=== PATIENT | female | born 1985 | race Hispanic/Latino ===

== ENCOUNTER 2019-12-30 12:59 | Observation (INO) | payer OTHER, SELFPAY ==
[2019-12-30 13:45] VITALS: BP 106/61; PULSE 83
[2019-12-30 14:00] VITALS: BP 115/66; PULSE 89
[2019-12-30 14:15] VITALS: BP 113/59; PULSE 83
[2019-12-30 14:31] LABS: Add Urine Microscopic? NO; Appearance Urine Clear (Clear); Bilirubin Urine Negative (Negative); Blood Urine Negative (Negative); Color Urine Yellow (Yellow); Glucose Urine UA Negative (Negative); Ketones Urine Negative (Negative); Leukocyte Esterase Ur Negative LEU/UL (NEGATIVE); Nitrate Urine Negative (Negative); Protein Urine Negative (Negative); Specific Grav Ur 1.013 (1.001-1.035); Urobilinogen Urine Negative mg/dL (<2.0)
[2019-12-30 15:39] VITALS: BMI 39.3
--- NOTE | 2019-12-30 15:39 | OBADM ---
This patient, Aida Landry, admitted to the OB room [facility] Post 111 for observation. Patient/family oriented to hospital policies and general routines including ID bracelet, bed and alarms, visiting hours, pain management, procedures, bathroom and other care routines, personal items, smoking policy, room service/diet, and visiting hours. Patient/Family are encouraged to report perceived risks to care and to ask questions if they do not understand what they are told or what they should do.
--- NOTE | 2020-01-11 19:57 | PM.OBDSVD ---
DS: Admitting Diagnosis Admitting Diagnosis Admitting Diagnosis: Dorsalgia, unspecified contractions DS: Discharge Diagnosis Discharge Diagnosis (1) False labor: Code(s): O47.9 - False labor, unspecified Status: Acute OB - DS: Summary OB Procedures : None OB Procedures Intrapartum: Other OB Procedures: : None Time Spent with Patient Time attestation: Total time spent providing and/or coordinating discharge services:10 Exam Const: General: comfortable and no acute distress Limitations: no limitations Chest: Breast/axilla inspection: normal inspection of the breasts Resp: Effort & Inspection: normal respiratory effort Cardio: Rate: regular rate GI: GI Palp: Yes Soft to palpation Percussion: Yes normal to percussion : General: Yes no CVA tenderness Manual OB Exam: Not dilated nor effaced Psych: Appearance: grossly normal Mental Status: mental status grossly normal Affect: normal affect Attitude: cooperative Thought content: Yes Normal thought content present Judgement: Good judgement present (Psych) Discharge Plan Discharge Attending physician on discharge: Hardik Bautista Discharging Clinician: Hardik Bautista Anticipated Discharge Date/Time: 12/30/19 22:44 Patient Disposition: Home, Self-Care Activity: unlimited and as tolerated Diet: as tolerated Wound Care Instructions: follow printed instructions Discharge Instructions: OB ANTEPARTUM DISCHARGE INSTRUCTIONS This information is given to help you properly care for yourself at home after your discharge from the hospital. Follow these instructions until your doctor tells you otherwise. DIET: Eat Three Well Balanced Meals per Day Additional Diet Instructions: ACTIVITY: As Tolerated Additional Activity Instructions: RETURN TO LABOR AND DELIVERY IF YOU HAVE: Any Change In Baby's Normal Movement Pattern Any Leakage of Fluid More than 6 Contractions in an Hour Vaginal Bleeding Additional Reasons to Return to Labor and Delivery: Contractions may feel like abdominal pain, tightening, cramping, pressure, back ache, or thigh ache. 24 Hour Urine Collection: Continue 24 hour urine collection until at . When collection is completed, return specimen to the [facility]. See handout for 24 hour urine collection. OTHER INSTRUCTIONS: FOLLOW-UP CARE: Keep Next Scheduled Appointment To see in/on Valuables released to patient or family? N/A Medications from home returned to patient? N/A I Acknowledge Receipt of and Understand the Above Instructions IF YOU HAVE ANY QUESTIONS REGARDING THESE INSTRUCTIONS, PLEASE CALL [phone]. IF PROBLEMS ARISE, CALL YOUR PROVIDER. IF EMERGENCY CARE IS NEEDED, [facility]S EMERGENCY ROOM IS AVAILABLE 24 HOURS A DAY. Stand Alone Forms: General Discharge Information Follow-up/Referrals: Hardik Bautista MD [Physician] - Discharge Medications: Continued multivitamin [Tab-A-Alannah] Tablet RF: 0 aspirin 81 mg tablet,delayed release (DR/EC) 81 mg PO BID RF: 0 acyclovir 800 mg tablet 800 mg PO DAILY RF: 0 progesterone micronized 200 mg capsule 200 mg PO BID RF: 0 folic acid 1 mg tablet 2 mg PO BID RF: 0 levothyroxine 200 mcg tablet 200 mcg PO QAM RF: 0 Classic 28 mg iron- 800 mcg tablet 1 tablet PO DAILY RF: 0 Date of admission: 12/30/19 12:59 Primary Care Provider: UNKNOWN,DOCTOR Admitting Provider: Hardik Bautista Discharge Date/Time: 12/30/19 14:58 Attending physician on admission: Hardik Bautista Condition: Stable
== END 2019-12-30 14:58 | disposition home or self-care (01) ==
PROVIDERS: Admitting Provider Obstetrics & Gynecology; Visit Provider Obstetrics & Gynecology
DX: O60.03 Preterm labor without delivery, third trimester (principal); Z3A.28 28 weeks gestation of pregnancy
CPT/HCPCS: 81003; 87086; 87088; G0378; G0379

== ENCOUNTER 2020-03-03 11:39 | Observation (INO) | payer OTHER, SELFPAY ==
[2020-03-03 11:42] VITALS: BMI 39.2
[2020-03-03 12:31] VITALS: BP 111/67; PULSE 79
--- NOTE | 2020-03-03 12:42 | OBADM ---
This patient, Aida Landry, admitted to the OB room Labor/Delivery/Recovery 104 for observation. Patient oriented to hospital policies and general routines including ID bracelet, bed and alarms, visiting hours, pain management, procedures, bathroom and other care routines, personal items,and call light. Patient is encouraged to report perceived risks to care and to ask questions if she does not understand what she is told or what she should do. Pt declines the need for an historic interpreter.
--- NOTE | 2020-03-09 05:35 | PM.OBTRLD ---
OB - Triage/Final Diagnosis Visit Information Reason for evaluation: threatened labor Evaluation Variability: Moderate (11-25) monitor accelerations: Present monitor decelerations: None Cervical dilation (cm): 0 Cervical effacement (%): 0 station: -4 Final Diagnosis (1) False labor: Code(s): O47.9 - False labor, unspecified Status: Acute
== END 2020-03-03 13:05 | disposition home or self-care (01) ==
PROVIDERS: Admitting Provider Obstetrics & Gynecology; Visit Provider Obstetrics & Gynecology
DX: O47.9 False labor, unspecified (principal); Z3A.00 Weeks of gestation of pregnancy not specified
CPT/HCPCS: G0378; G0379

== ENCOUNTER 2020-03-16 15:13 | Outpatient (RCR) | payer OTHER, SELFPAY ==
--- NOTE | ~2020-03-16 | US_ITS ---
EXAMINATION: US OB follow up w [facility] DATE: 03/16/2020 17:06 INDICATION: Encounter for routine care during third trimester TECHNIQUE: Real-time pelvic ultrasound was performed. The interpreting radiologist was not present fo r the study. COMPARISON: None. FINDINGS: There is a single living fetus in vertex presentation. The placenta is fundal. heart rate is 16 3 beats per minute (bpm). The amniotic fluid index is 10.1 cm which is normal. Biophysical profile performed by the technologist: breathing (30 sec sustained breathing in 30 minutes): 2 out of 2 movement (3 gross body movements in 30 minutes): 2 out of 2 tone (one episode of pafqrpm-qvukjvgwb-vtavpbd limb movement): 2 out of 2 Amniotic fluid pocket (2 cm): 2 out of 2 Total score: 8 out of 8 The following biometric data were obtained: Biparietal diameter (BPD): 9.2 cm; head circumference (HC): 34.6 cm; abdominal circumference (AC): 34 .0 cm; femur length (FL): 7.3 cm. These measurements are concordant. Estimated weight is 3388 g +/- 508 g, which correlates with the 46th percentile when 03/23/2020 is used as estimated date of delivery. As single measurements, these parameters are each equal to the following estimated gestational ages w ith ranges of +/- 2 standard deviations: BPD: 37 weeks 3 days +/- 3 weeks 1 days. HC: 40 weeks 1 days +/- 2 weeks 5 days. AC: 38 weeks 0 days +/- 3 weeks 0 days. FL: 37 weeks 5 days +/- 3 weeks 1 days. estimated gestational age based solely on measurements from this exam is 38 weeks 2 days +/- 2 weeks 5 days. IMPRESSION: 1. Single living fetus in vertex presentation. 2. Biophysical profile 8 out of 8. 3. Estimated weight is 3388 g +/- 508 g, which correlates with the 46th percentile when 020 is used as estimated date of delivery. Reviewed, dictated and finalized at location A. IMPRESSION: 1. Single living fetus in vertex presentation. 2. Biophysical profile 8 out of 8. 3. Estimated weight is 3388 g +/- 508 g, which correlates with the 46th p ercentile when 03/23/2020 is used as estimated date of delivery.
[2020-03-16 17:24] VITALS: BP 124/68; PULSE 81
== END 2020-03-23 08:04 | disposition home or self-care (01) ==
LOC: ANHOBOP 15:13
PROVIDERS: Visit Provider Obstetrics & Gynecology
DX: Z34.93 Encounter for supervision of normal pregnancy, unspecified, third trimester (principal); Z3A.38 38 weeks gestation of pregnancy
CPT/HCPCS: 59025; 76816; 76819

== ENCOUNTER 2020-03-20 04:04 | Inpatient (IN) | payer OTHER, SELFPAY ==
--- NOTE | 2020-03-19 19:36 | PM.IMHP ---
H&P: HPI History of Present Illness Date/Time: 03/20/20 06:36 Chief complaint: Induction of labor Narrative: Aida Landry is a 34 y/o H F with presents for IOL at 39w4d. c/b MTHFR, obesity, prediabetes, and hypothyroidism,HSV and PIH the patient understands her condition procedure and risk and agrees to proceed. We will be using Pitocin per protocol. Review of Systems Review of Systems: All systems reviewed & are unremarkable except as noted in HPI and below Constitutional: Constitutional: Reports no additional constitutional complaints Eyes: Eyes: Reports no additional eye complaints ENT: Reports system reviewed and no additional complaints, except as documented Cardiovascular: Cardiovascular: Reports no additional cardiovascular complaints Respiratory: Respiratory: Reports no additional respiratory complaints Gastrointestinal: Gastrointestinal: Reports no additional gastrointestinal complaints Genitourinary: Genitourinary: Reports no additional female genitourinary complaints Musculoskeletal: Musculoskeletal: Reports no additional musculoskeletal complaints Integumentary/Breasts: Skin/Breast: Reports system reviewed and no additional complaints, except as docu Neurologic: Reports system reviewed and no additional complaints, except as documented Psychiatric: Psychiatric: Reports no additional psychiatric complaints Endocrine: Endocrine: Reports no additional endocrine complaints Allergic/Immunologic: Allergic/Immunologic: Reports no additional allergic/immunologic complaints [facility] Past Medical History Medical History (Updated 03/19/20 @ 20:05 by Hardik Bautista MD) Compound heterozygous MTHFR mutation 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 M, 7lbs 5oz, Vaginal Vaginal delivery 04-18-2007, 40 wks 1. M, 7lbs 5oz, Vaginal Vaginal delivery 02-07-2005, 40 wks 1. 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 Gender identity (if verbalized by the patient): Female Sexual Orientation (if Verbalized by the Patient): Straight or Heterosexual Spiritual care concerns: No Agree to blood products: Yes Meds Home Medications and Allergies Home Medications Medication Instructions Recorded Confirmed Type Classic 1 tablet PO DAILY 01/06/20 03/16/20 History acyclovir 800 mg PO DAILY 01/06/20 03/16/20 History folic acid 2 mg PO BID 01/06/20 03/16/20 History levothyroxine 200 mcg PO QAM 01/06/20 03/16/20 History Allergies Allergy/AdvReac Type Severity Reaction Status Date / Time metronidazole Allergy Swelling Verified 03/16/20 12:11 Exam Const: General: cooperative, healthy appearing, comfortable, no acute distress, well developed, alert, awake and Physically active Nutritional Appearance: obese Orientation/consciousness: patient oriented x3 Limitations: no limitations HENMT: Head: normal to inspection and normocephalic Ears: hearing grossly normal bilaterally and external ears normal General nose exam: Normal external nose present Face and sinus: normal facial exam Mouth: Yes Normal oral and palatal mucosa present Teeth
--- NOTE | 2020-03-19 20:26 | WPDHPUPDATE1 ---
History and Physical Update Update Date/Time: 03/20/20 20:26 History and Physical has been reviewed, including an updated exam of the patient. There are NO changes in the patient's condition. Risks, benefits, and alternatives have been discussed and questions answered. Patient agrees to proceed with procedure. 34 y/o H F with presents for IOL at 39w4d. c/b MTHFR, obesity, prediabetes, and hypothyroidism, and HSV. . She endorses movement. Denies LOF, bleeding. + movements
--- NOTE | 2020-03-19 20:30 | WPDOBADMIT ---
Obstetrics - Admit Note Admission Note: record reviewed. No pertinent additions to the history and/or any subsequent changes in the physical findings that are not consistent with the expected course of the were found. Additions to the history and/or subsequent changes in the physical findings follow. None. 34 y/o H F with presents for IOL at 39w4d. c/b MTHFR, obesity, prediabetes, and hypothyroidism, and HSV. . She endorses movement. Denies LOF, bleeding. + movements
[2020-03-20] VITALS (109 sets, daily range): BP systolic 63–156; BP diastolic 48–93; PULSE 79–237; RESP 14–18; TEMP 36.1–37.5; O2SAT 93–100; BMI 40.3
--- NOTE | ~2020-03-20 | XR_ITS ---
CORRECTED REPORT V# CHANGED EXAMINATION: XR abdomen/kub 1V DATE: 03/20/2020 11:59 INDICATION: Lost instrument TECHNIQUE: Single supine radiograph of the abdomen and pelvis was obtained. COMPARISON: CT angiogram of the abdomen and pelvis dated 10/16/2018 FINDINGS: Evaluation of fine bone and soft tissue detail as well as for nonmetallic foreign bodies is limited by underpenetration related to patient body habitus. The upper abdomen and a small portion of the lateral left lower quadrant of the abdomen are excluded from the [id number]. No radiopaque foreign bodies identified. No dilated loops of bowel to suggest obstruction. IMPRESSION: 1. No evident radiopaque foreign bodies. See discussion above regarding limitations. Reviewed, dictated and finalized at location [facility]
--- NOTE | 2020-03-20 04:45 | LDADM ---
This patient, Aida Landry, was admitted to Labor/Delivery/Recovery 104 on 03/20/20 at 04:04. Plans for labor, pain management and were discussed with patient. Patient/family oriented to hospital policies and general routines including ID bracelet, bed and alarms, visiting hours, pain management, procedures, bathroom and other care routines, personal items, smoking policy, room service/diet and guest tray routines, security routines, and visiting hours. Patient/Family are encouraged to report perceived risks to care and to ask questions if they do not understand what they are told or what they should do. See OBIX for further documentation.
[2020-03-20 04:58] LABS: Basophils Absolute Auto 0.1 K/mm3 (0.0-0.1); Basophils Percent Auto 0.5 % (0.2-1.2); Eosinophils Absolute Auto 0.1 K/mm3 (0-0.3); Eosinophils Percent Auto 1.1 % (0-4.4); Hematocrit 39.6 % (37.0-47.0); Immature Granulocyte Absolute 0.14 K/mm3 (0.00-0.031); Immature Granulocyte Percent A 1.1 % (0-0.5); Lymphocytes Absolute Auto 2.17 K/mm3 (0.9-3.2); Lymphocytes Percent Auto 16.5 % (18.3-44.2); Mean Corpuscular HGB Conc 32.8 g/dl (32-36); Mean Corpuscular Hemoglobin 27.1 pg (26-34); Mean Corpuscular Volume 82.7 fl (80-100); Monocytes Absolute Auto 0.7 K/mm3 (0.1-0.6); Monocytes Percent Auto 5.5 % (2.6-8.5); Neutrophils Absolute Auto 9.9 K/mm3 (1.3-6.7); Neutrophils Percent Auto 75.3 % (45.5-73.1); Platelet Count Result 261 k/mm3 (150-375); Red Blood Count 4.79 M/mm3 (4.2-5.4); Red Cell Distribution Width 14.4 % (11.5-14.5); White Blood Count 13.2 K/mm3 (4.5-10.0)
[2020-03-20 05:07] LABS: Alanine Aminotransferase 12 U/L (4-35); Albumin Level 3.5 g/dL (3.5-5.1); Alkaline Phosphatase 176 U/L (38-126); Anion Gap 10 mmol/L (8-16); Aspartate Amino Transferase 17 U/L (14-36); Bilirubin,Total 0.2 mg/dL (0.2-1.3); Blood Urea Nitrogen 14 mg/dL (7-17); Calcium 9.1 mg/dL (8.4-10.2); Carbon Dioxide 17 mmol/L (22-30); Chloride 108 mmol/L (98-107); Estimated Glomerular Filt Rate > 60; Glucose 108 mg/dL (65-105); Potassium 3.9 mmol/L (3.4-5.0); Sodium 135 mmol/L (137-145); Uric Acid 3.9 mg/dL (2.5-7.5)
[2020-03-20 05:22] LABS: Amphetamine Screen Urine Negative (Negative); Barbiturate Screen Urine Negative (Negative); Benzodiazepines Screen Urine Negative (Negative); Cannabinoid Screen Urine Negative (Negative); Cocaine Screen Urine Negative (Negative); Methadone Screen Urine Negative (Negative); Opiate Screen Urine Negative (Negative); Phencyclidine Screen Urine Negative (Negative)
[2020-03-20] MEDS: LACTATED RINGERS 1,000 ML 125 ML IV CONT ×2 (05:57→08:06)
[2020-03-20] MEDS: OXYTOCIN 30 UNITS/NS 500 ML 30 UNITS/500 ML BAG IV CONT (05:58)
--- NOTE | 2020-03-20 06:08 | WPDANESEPP ---
Anes - Eval Pre Procedure Procedure: labor epidural Date/Time: 03/20/20 06:08 Surgeon: yesenia Pre Op Diagnosis: Induction of Labor Patient Data Age: 34 Gender: F Height: Weight: Last Vital Signs Temp 36.4 C 03/20/20 05:44 Pulse 106 H 03/20/20 06:01 BP 138/73 03/20/20 06:01 Allergies Allergy/AdvReac Type Severity Reaction Status Date / Time metronidazole Allergy Swelling Verified 03/16/20 12:11 Home Medications Medication Instructions Recorded Confirmed Type Classic 1 tablet PO DAILY 01/06/20 03/16/20 History acyclovir 800 mg PO DAILY 01/06/20 03/16/20 History folic acid 2 mg PO BID 01/06/20 03/16/20 History levothyroxine 200 mcg PO QAM 01/06/20 03/16/20 History Laboratory Tests 03/20/20 03/20/20 03/20/20 04:48 04:48 04:48 WBC 13.2 K/mm3 H K/mm3 (4.5-10.0) RBC 4.79 M/mm3 M/mm3 (4.2-5.4) Hgb 13.0 g/dL g/dL (12.0-15.0) Hct 39.6 % % (37.0-47.0) MCV 82.7 fl fl (80-100) MCH 27.1 pg pg (26-34) MCHC 32.8 g/dl g/dl (32-36) RDW 14.4 % % (11.5-14.5) Plt Count 261 k/mm3 k/mm3 (150-375) MPV 11.0 fl H fl (7.4-10.4) Immature Gran % (Auto) 1.1 % H % (0-0.5) Neut % (Auto) 75.3 % H % (45.5-73.1) Lymph % (Auto) 16.5 % L % (18.3-44.2) [place] % (Auto) 5.5 % % (2.6-8.5) Eos % (Auto) 1.1 % % (0-4.4) Baso % (Auto) 0.5 % % (0.2-1.2) Lymph # (Auto) 2.17 K/mm3 K/mm3 (0.9-3.2) [place] # (Auto) 0.7 K/mm3 H K/mm3 (0.1-0.6) Eos # (Auto) 0.1 K/mm3 K/mm3 (0-0.3) Baso # (Auto) 0.1 K/mm3 K/mm3 (0.0-0.1) Abs Immat Gran (auto) 0.14 K/mm3 H K/mm3 (0.00-0.031) Absolute Neuts (auto) 9.9 K/mm3 H K/mm3 (1.3-6.7) Absolute Nucleated RBC 0.0 K/mm3 K/mm3 (0.0-0.012) Nucleated RBC % 0.0 % % (0.0-0.2) Sodium 135 mmol/L L mmol/L (137-145) Potassium 3.9 mmol/L mmol/L (3.4-5.0) Chloride 108 mmol/L H mmol/L (98-107) Carbon Dioxide 17 mmol/L L mmol/L (22-30) Anion Gap 10 mmol/L mmol/L (8-16) BUN 14 mg/dL mg/dL (7-17) Creatinine 0.40 mg/dL L mg/dL (0.7-1.0) Estim Creat Clear Calc Not Reportable Estimated GFR > 60 (59 - ) Glucose 108 mg/dL H mg/dL (65-105) Uric Acid 3.9 mg/dL mg/dL (2.5-7.5) Calcium 9.1 mg/dL mg/dL (8.4-10.2) Total Bilirubin 0.2 mg/dL mg/dL (0.2-1.3) AST 17 U/L U/L (14-36) ALT 12 U/L U/L (4-35) Alkaline Phosphatase 176 U/L H U/L (38-126) Total Protein 7.0 g/dL g/dL (6.3-8.2) Albumin 3.5 g/dL g/dL (3.5-5.1) Urine Opiates Screen Urine Methadone Screen Ur Barbiturates Screen Ur Phencyclidine Scrn Ur Amphetamine Screen U Benzodiazepines Scrn Urine Cocaine Screen U Cannabinoids Screen RPR Pending 03/20/20 04:53 WBC RBC Hgb Hct MCV MCH MCHC RDW Plt Count MPV Immature Gran % (Auto) Neut % (Auto) Lymph % (Auto) [place] % (Auto) Eos % (Auto) Baso % (Auto) Lymph # (Auto) [place] # (Auto) Eos # (Auto) Baso # (Auto) Abs Immat Gran (auto) Absolute Neuts (auto) Absolute Nucleated RBC Nucleated RBC % Sodium Potassium Chloride Carbon Dioxide Anion Gap BUN Creatinine Estim Creat Clear Calc Estimated GFR Glucose Uric Acid Calcium Total Bilirubin AST ALT Alkaline Phosphatase Total Protein Albumin Urine Opiates Screen Negative (Negative) Urine Methadone Scr
[2020-03-20 08:22] LABS: Rapid Plasma Reagin Non-Reactive (NonReactive)
--- NOTE | 2020-03-20 10:38 | WPDANESEPP ---
Anes - Eval Pre Procedure Procedure: Labor Epidural Date/Time: 03/20/20 10:38 Surgeon: Lily Preop Diagnosis: Labor Pain Pre Op Diagnosis: Induction of Labor Patient Data Age: 34 Gender: F Height: Weight: Last Vital Signs Temp 36.1 C L 03/20/20 09:31 Pulse 112 H 03/20/20 10:36 BP 130/68 03/20/20 10:36 Pulse Ox 100 03/20/20 10:35 Allergies Allergy/AdvReac Type Severity Reaction Status Date / Time metronidazole Allergy Swelling Verified 03/16/20 12:11 Home Medications Medication Instructions Recorded Confirmed Type Classic 1 tablet PO DAILY 01/06/20 03/20/20 History acyclovir 800 mg PO DAILY 01/06/20 03/20/20 History folic acid 2 mg PO BID 01/06/20 03/20/20 History levothyroxine 200 mcg PO QAM 01/06/20 03/20/20 History Laboratory Tests 03/20/20 03/20/20 03/20/20 04:48 04:48 04:48 WBC 13.2 K/mm3 H K/mm3 (4.5-10.0) RBC 4.79 M/mm3 M/mm3 (4.2-5.4) Hgb 13.0 g/dL g/dL (12.0-15.0) Hct 39.6 % % (37.0-47.0) MCV 82.7 fl fl (80-100) MCH 27.1 pg pg (26-34) MCHC 32.8 g/dl g/dl (32-36) RDW 14.4 % % (11.5-14.5) Plt Count 261 k/mm3 k/mm3 (150-375) MPV 11.0 fl H fl (7.4-10.4) Immature Gran % (Auto) 1.1 % H % (0-0.5) Neut % (Auto) 75.3 % H % (45.5-73.1) Lymph % (Auto) 16.5 % L % (18.3-44.2) [place] % (Auto) 5.5 % % (2.6-8.5) Eos % (Auto) 1.1 % % (0-4.4) Baso % (Auto) 0.5 % % (0.2-1.2) Lymph # (Auto) 2.17 K/mm3 K/mm3 (0.9-3.2) [place] # (Auto) 0.7 K/mm3 H K/mm3 (0.1-0.6) Eos # (Auto) 0.1 K/mm3 K/mm3 (0-0.3) Baso # (Auto) 0.1 K/mm3 K/mm3 (0.0-0.1) Abs Immat Gran (auto) 0.14 K/mm3 H K/mm3 (0.00-0.031) Absolute Neuts (auto) 9.9 K/mm3 H K/mm3 (1.3-6.7) Absolute Nucleated RBC 0.0 K/mm3 K/mm3 (0.0-0.012) Nucleated RBC % 0.0 % % (0.0-0.2) Sodium Potassium Chloride Carbon Dioxide Anion Gap BUN Creatinine Estim Creat Clear Calc Estimated GFR Glucose Uric Acid Calcium Total Bilirubin AST ALT Alkaline Phosphatase Total Protein Albumin Urine Opiates Screen Urine Methadone Screen Ur Barbiturates Screen Ur Phencyclidine Scrn Ur Amphetamine Screen U Benzodiazepines Scrn Urine Cocaine Screen U Cannabinoids Screen RPR Non-reactive (NonReactive) Blood Type O Positive Antibody Screen Negative 03/20/20 03/20/20 04:48 04:53 WBC RBC Hgb Hct MCV MCH MCHC RDW Plt Count MPV Immature Gran % (Auto) Neut % (Auto) Lymph % (Auto) [place] % (Auto) Eos % (Auto) Baso % (Auto) Lymph # (Auto) [place] # (Auto) Eos # (Auto) Baso # (Auto) Abs Immat Gran (auto) Absolute Neuts (auto) Absolute Nucleated RBC Nucleated RBC % Sodium 135 mmol/L L mmol/L (137-145) Potassium 3.9 mmol/L mmol/L (3.4-5.0) Chloride 108 mmol/L H mmol/L (98-107) Carbon Dioxide 17 mmol/L L mmol/L (22-30) Anion Gap 10 mmol/L mmol/L (8-16) BUN 14 mg/dL mg/dL (7-17) Creatinine 0.40 mg/dL L mg/dL (0.7-1.0) Estim Creat Clear Calc Not Reportable Estimated GFR > 60 (59 - ) Glucose 108 mg/dL H mg/dL (65-105) Uric Acid 3.9 mg/dL mg/dL (2.5-7.5) Calcium 9.1 mg/dL mg/dL (8.4-10.2) Total Bilirubin 0.2 mg/dL mg/dL
--- NOTE | 2020-03-20 10:55 | P.PNOB_ITS ---
Pain Control Date/time seen: 03/20/20 10:55 Pain control: tolerating well and epidural Comments: Patient experiencing repetitive decelerations late appearing on external monitoring Pitocin turned off still having decelerations despite head off of O2 fluids left side epidural placed Pelvic Exam Dilation (cm): 4 Effacement (%): 100 station: -2 Amniotic membrane status: Ruptured ( artificial rupture membranes meconium- stained amniotic fluid scalp electrode placed and intrauterine pressure catheter placed) Contractions Monitor mode: Internal Contraction frequency: 2 Contraction duration: 45 Contraction pattern: Regular Contraction phase: Resting Contraction intensity: Moderate Status status: Category ll Assessment and Plan Assessment: active labor and other ( intolerance of labor) Plan: Comments: I explained her condition procedure risks involved surgical procedure understood and accepted by patient
--- NOTE | 2020-03-20 10:58 | PM.OBPRVD ---
OB - Delivery Note Procedure Delivery date: 03/20/20 Procedure: Procedures Operation Date: 03/20/20 11:00 primary low transverse section with delivery of male and placenta events: Induced HTN and Labor Induction Intrapartal events: Intolerance Induction method: per pitocin protocol Delivery augmentation: rupture of membranes Delivery monitor: internal FHT and internal uterine Route of delivery: Indication for instrumentation: nonreassuring FHR tracing Specimen: Yes ( placenta) Anesthesia type: Epidural Disposition: floor [place] Baby Date of : 03/20/20 Time of : 11:18 Weeks of gestation at delivery: 39 gender: Male (Leanardo) Weight (pounds): 7 Weight (ounces): 2 presentation: vertex position: Left Occiput Transverse score one minute: 8 score five minutes: 9
[2020-03-20] MEDS: ceFAZolin 2 GM/D5W 50 ML 2 GM/50 ML BAG IVPB ×2 (11:08→19:10)
--- NOTE | 2020-03-20 12:13 | PM.PROC ---
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 [facility] she is having a boy is named vega melgoza no circumcision is desired she will be breast and bottle feeding (5) PIH ( induced hypertension), antepartum: Code(s): O13.9 - Gestational [-induced] hypertension without significant proteinuria, unspecified trimester Status: Acute (6) Hypothyroidism: Code(s): E03.9 - Hypothyroidism, unspecified Status: Acute (7) Abnormal glucose tolerance test: Code(s): R73.09 - Other abnormal glucose Status: Acute (8) History of miscarriage: Code(s): Z87.59 - Personal history of other complications of , childbirth and the puerperium Status: Acute intolerance of labor meconium-stained amniotic fluid Post-op diagnosis: same ( delivered viable male infant and placenta with short umbilical cord and chorioamnionitis) Procedure performed: primary low transverse section with delivery of viable male and placenta Description of procedure: patient was taken to the operating room with epidural anesthesia being dosed and adequate was prepped and draped in the usual sterile fashion in the supine position and a time-out was performed. A Pfannenstiel incision was made the skin with Scharff plate in the abdomen was opened in layers with sharp blade the fascia was digitally dissected bilaterally undermined superiorly with sharp blade rectus muscle midline and digitally dissected down to the level of the uterus. Uterine incision was made with scalpel digital entry was then made to the uterus and the uterine incisions was dissected digitally bilaterally and the vertex was then delivered via the abdominal incision with the Nose and Throat bulb suction there was spontaneous respirations and cry the cord was clamped and cut and the infant was handed to the nursery nurse in attendance. scores given 8 and 9 at 1 and 5 minutes time of delivery 11:18 a.m.. Umbilical cord blood gases were obtained and umbilical cord sent as the placenta was delivered blood clots and membranes removed from the intrauterine cavity with the uterus externalized. Pitocin was given intravenously and 10 units in the the myometrium. The uterus was boggy therefore Hemabate was given intramuscularly and the uterus contracted well. the uterus was repaired in 2 layers with 0 Vicryl in a running interlocking fashion the 2nd being an imbricating stitch hemostasis excellent blood and clots removed from the cul-de-sac with irrigation and both lateral gutters and the uterus was returned to the peritoneal cavity. Sponge needle instrument count correct the anterior peritoneum and rectus muscles reapproximated with 0 Vicryl suture in a running fashion the fascia was closed with 2. Quill statin dex in a bilateral fashion Pedro's fascia was reapproximated with 3 0 plain and the skin was closed with absorbable jah and Dermabond to the skin a sterile dressing was applied and the patient was taken to the recovery room in stable condition mom and baby doing well due to chorioamnionitis triple antibiotic therapy was initiated with the gentamicin 2 milligrams/kilogram followed by 1 milligram/kilogram for 3 do
[2020-03-20] MEDS: KETOROLAC 30 MG/ML VIAL (*BKC) IV PUSH (12:31)
[2020-03-20] MEDS: OXYTOCIN 30 UNITS/NS 500 ML 30 UNITS/500 ML BAG 125 UNITS IV CONT (12:31)
[2020-03-20] MEDS: CLINDAMYCIN 900 MG/NS 50 ML 900 MG/50 ML PIGGYBACK 50 MG IVPB ×2 (13:07→19:56)
[2020-03-20] MEDS: fentaNYL CITRATE INJ (*CRX) 100 MCG/2 ML VIAL IV PUSH (13:39)
--- NOTE | 2020-03-20 15:31 | PC.NURSE ---
Patient transferred to post room #288 via stretcher. Support person present. Oriented to unit, room, information board, rooming in, admission packet and security measures. Patient verbalizes understanding.
[2020-03-20] MEDS: HYDROcodone/acetaminophen (*CRX) 5-325 MG TABLET 1 TAB PO (17:24)
[2020-03-20] MEDS: DOCUSATE SODIUM 100 MG CAPSULE PO (17:24)
[2020-03-20] MEDS: IBUPROFEN 600 MG TABLET PO ×2 (17:24→23:11)
[2020-03-20] MEDS: FOLIC ACID 1 MG TABLET 2 MG PO (17:25)
[2020-03-20] MEDS: DEXTROSE 5%/0.45% SOD CHL 1,000 ML 125 ML IV CONT (19:10)
[2020-03-21] VITALS: BP 98/58; PULSE 98; RESP 18; TEMP 36.8; O2SAT 98
[2020-03-21] MEDS: ceFAZolin 2 GM/D5W 50 ML 2 GM/50 ML BAG IVPB ×2 (03:00→12:16)
[2020-03-21] MEDS: HYDROcodone/acetaminophen (*CRX) 5-325 MG TABLET 1 TAB PO ×5 (03:01→23:02)
[2020-03-21] MEDS: CLINDAMYCIN 900 MG/NS 50 ML 900 MG/50 ML PIGGYBACK 50 MG IVPB (03:41)
[2020-03-21 05:00] VITALS: BP 111/68; PULSE 87; RESP 18; TEMP 36.4; O2SAT 98
[2020-03-21] MEDS: IBUPROFEN 600 MG TABLET PO ×4 (05:23→23:04)
[2020-03-21 06:07] LABS: Basophils Percent Auto 0.3 % (0.2-1.2); Eosinophils Absolute Auto 0.1 K/mm3 (0-0.3); Eosinophils Percent Auto 0.7 % (0-4.4); Hemoglobin 10.2 g/dL (12.0-15.0); Lymphocytes Absolute Auto 1.53 K/mm3 (0.9-3.2); Lymphocytes Percent Auto 14.8 % (18.3-44.2); Mean Corpuscular HGB Conc 32.9 g/dl (32-36); Mean Corpuscular Hemoglobin 26.8 pg (26-34); Mean Corpuscular Volume 81.4 fl (80-100); Mean Platelet Volume 10.9 fl (7.4-10.4); Monocytes Absolute Auto 0.7 K/mm3 (0.1-0.6); Monocytes Percent Auto 6.3 % (2.6-8.5); Neutrophils Absolute Auto 7.9 K/mm3 (1.3-6.7); Neutrophils Percent Auto 76.9 % (45.5-73.1); Platelet Count Result 193 k/mm3 (150-375); Red Blood Count 3.81 M/mm3 (4.2-5.4); Red Cell Distribution Width 14.6 % (11.5-14.5); White Blood Count 10.3 K/mm3 (4.5-10.0)
[2020-03-21 08:00] VITALS: BP 106/52; PULSE 101; RESP 18; TEMP 36.4; O2SAT 100
[2020-03-21] MEDS: DOCUSATE SODIUM 100 MG CAPSULE PO ×2 (08:10→17:25)
[2020-03-21] MEDS: SIMETHICONE 80 MG TAB.CHEW PO ×2 (08:10→17:25)
[2020-03-21] MEDS: ACYCLOVIR 400 MG TABLET 800 MG BY MOUTH (08:11)
[2020-03-21] MEDS: FOLIC ACID 1 MG TABLET 2 MG PO ×2 (08:11→17:25)
[2020-03-21] MEDS: MULTIVIT/MIN/PREN/FOL AC/IRON TABLET 1 TAB PO (08:12)
[2020-03-21] MEDS: LEVOTHYROXINE SODIUM 100 MCG TABLET 200 MCG PO (08:12)
--- NOTE | 2020-03-21 11:00 | PM.OBDSVD ---
DS: Admitting Diagnosis Admitting Diagnosis Admitting Diagnosis: Induction of Labor Term MTHFR heterozygous compound genital herpes Maternal obesity Hypothyroidism Abnormal glucose tolerance tests History of miscarriage -induced hypertension DS: Discharge Diagnosis Discharge Diagnosis (1) Term delivered: Code(s): O80 - Encounter for full-term uncomplicated delivery Status: Acute (2) intolerance to labor, delivered, current hospitalization: Code(s): O77.9 - Labor and delivery complicated by stress, unspecified Status: Acute (3) Meconium stained amniotic fluid, delivered, current hospitalization: Code(s): O77.0 - Labor and delivery complicated by meconium in amniotic fluid Status: Acute (4) Abnormal glucose tolerance test: Code(s): R73.09 - Other abnormal glucose Status: Acute (5) Hypothyroidism: Code(s): E03.9 - Hypothyroidism, unspecified Status: Acute (6) PIH ( induced hypertension), antepartum: Code(s): O13.9 - Gestational [-induced] hypertension without significant proteinuria, unspecified trimester Status: Acute (7) HSV (herpes simplex virus) infection: Code(s): B00.9 - Herpesviral infection, unspecified Status: Acute (8) Obesity (BMI 35.0-39.9 without comorbidity): Code(s): E66.9 - Obesity, unspecified Status: Acute (9) 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: Code(s): E72.12 - Methylenetetrahydrofolate reductase deficiency Status: Acute (10) Chorioamnionitis: Code(s): O41.1290 - Chorioamnionitis, unspecified trimester, not applicable or unspecified Status: Acute OB - DS: Summary Hospital Course Time spent discussing smoking cessation with patient: 3 to 10 minutes OB Procedures : NST and Ultrasound OB Procedures Intrapartum: ( primary) low cervical, transverse OB Procedures: : Antibiotics Peripartum Data Delivery Method: Section ( primary low transverse) Laceration description: None Episiotomy description: None Procedures: Procedures Operation Date: 03/20/20 11:00 primary low-transverse section with delivery of viable male infant and placenta complications: none [place] 1: Gender: Male Disposition of : home Status at Discharge Cognitive/behavioral status at discharge: discharge stable 03/22/20 Functional status at discharge: independent ambulation Overall status at discharge: patient is back to baseline Time Spent with Patient Time attestation: Total time spent providing and/or coordinating discharge services: Time spent: Less than 30 minutes Exam Const: General: comfortable, no acute distress, alert and awake Limitations: no limitations Chest: Breast/axilla inspection: normal inspection of the breasts Breast/axilla palpation: normal palpation of the breasts Resp: Effort & Inspection: normal respiratory effort Auscultation: clear to auscultation bilaterally Cardio: Rate: regular rate GI: GI Palp: Yes Soft to palpation and Yes Firmness to palpation present (GI) ( uterus) Percussion: Yes normal to percussion Auscultation: normal bowel sounds : General: Yes bladder normal to inspection and Yes no CVA tenderness Psych: Appearance: grossly normal Mental Status: mental status grossly normal Affect: normal affect Attitude: cooperative Thought content: Yes Normal thought content present Judgement: Good judgement present (Psych) DS: Data Data Completed and Pending Labs on day of discharge: Labs from last 24 hours 03/20/20 03/20/20 03/20/20 04:53 04:48 04:48 WBC RBC Hgb Hct MCV MCH MCHC RDW Plt Count MPV Immature Gran % (Auto) Neut % (Auto) Lymph % (Auto) [place] % (Auto) Eos % (Auto) Baso % (Auto) Lymph # (Auto) [place] # (Auto) Eos # (Auto)
--- NOTE | 2020-03-21 11:00 | PC.NURSE ---
Consulted with patient, mother reports this to be 4th child to breastfeed, she plans on breast and bottle feeding. Reviewed feeding cues, frequencies, duration of feedings, feeding elimination flow sheet, and signs of adequate intake. Demonstrated stimulation techniques to wake for feeding. Assisted with to breast. Reviewed positioning/alignment in cross cradle, holding breast in U hold and guided asymmetrical latch on. discussed rational for each. was able to latch correctly with first attempt. nursed eagerly, with steady draws and frequent swallowing noted. Reviewed signs of a correct latch, effective nursing and suck swallow ratio. Infant was able to maintain latch without discomfort to mother. Nipple care reviewed. Suggested to stimulate while feeding to keep infant awake and nursing effectively for increased intake and to assist with maintaining deep latch. Instructed mother to call out for RN assistance if she is unable to latch for feeding or she has discomfort with nursing. Instructed feeding should be initiated three hours from start of last feeding or if feeding cues are noted before. Mother voiced understanding of information shared.
--- NOTE | 2020-03-21 11:16 | WPDANLDPN2 ---
Anes-Prog Note L&D Date/Time: 03/21/20 11:16 Comfortable throughout: section Neuraxial method: epidural Epidural/Spinal procedure site: clean & non-tender Neuro status: Neuro function grossly intact. Cardiovascular status: normal Respiratory status: normal Airway patency: baseline Mental status: baseline Post-Op hydration status: normal Vital Signs: Last Vital Signs Temp 36.4 C 03/21/20 08:00 Pulse 101 H 03/21/20 08:00 Resp 18 03/21/20 08:00 BP 106/52 L 03/21/20 08:00 Pulse Ox 100 03/21/20 08:00 Pain score (VAS): 0 I/O: Intake & Output 03/20/20 03/21/20 03/21/20 23:59 07:59 15:59 Intake Total 491.75 440 1190 Output Total 250 1300 1400 Balance 241.17 -881 -210 Post-procedural complaints: none Patient feedback: Patient satisfied with anesthetic care.
--- NOTE | 2020-03-21 11:17 | WPDANLDNPN2 ---
Anes-Prog Note L&D-Neuraxial Date/Time: 03/21/20 11:17 Neuraxial medications: epidural PF morphine Opiod-related complaints: none Patient feedback: Patient satisfied with post-operative pain management.
[2020-03-21 12:30] VITALS: BP 110/50; PULSE 100; RESP 20; TEMP 36.8
[2020-03-21 13:14] LABS: Gentamicin Trough < 0.6 ug/mL (<1.0)
[2020-03-21 16:23] LABS: Gentamicin Peak 2.4 ug/mL (5.0-12.0)
--- NOTE | 2020-03-21 17:33 | P.PNOB_ITS ---
OB - PN: Subj Subjective Date/time seen: 03/21/20 17:33 Interval history: 34yohf s/p primary c/s pod1 Patient comments: no complaints, pain well controlled, tolerating diet and flatus present [place] baby status: doing well and nursing well feeding status: breast and bottle feeding OB - PN: Obj Data Labs CBC & Chem 7: 03/21/20 04:57 03/20/20 04:48 Labs: Laboratory Results - last 24 hr 03/21/20 03/21/20 03/21/20 04:57 12:18 15:32 WBC 10.3 H RBC 3.81 L Hgb 10.2 L Hct 31.0 L MCV 81.4 MCH 26.8 MCHC 32.9 RDW 14.6 H Plt Count 193 MPV 10.9 H Immature Gran % (Auto) 1.0 H Neut % (Auto) 76.9 H Lymph % (Auto) 14.8 L [place] % (Auto) 6.3 Eos % (Auto) 0.7 Baso % (Auto) 0.3 Lymph # (Auto) 1.53 [place] # (Auto) 0.7 H Eos # (Auto) 0.1 Baso # (Auto) 0.0 Abs Immat Gran (auto) 0.10 H Absolute Neuts (auto) 7.9 H Absolute Nucleated RBC 0.0 Nucleated RBC % 0.0 Gentamicin Peak 2.4 L Gentamicin Trough < 0.6 OB - PN A/P Assessment and Plan (1) Delivery by section: Status: Acute (2) intolerance to labor, delivered, current hospitalization: Code(s): O77.9 - Labor and delivery complicated by stress, unspecified Status: Acute Time Spent With Patient Time: Total time spent is greater than 50% in coordination of care (as documented) at patient's floor/unit and/or counseling patient: Review of Systems Review of Systems: All systems reviewed & are unremarkable except as noted in HPI and below Exam Const: General: comfortable, no acute distress, alert and awake Orientation/consciousness: patient oriented x3 Chest: Breast/axilla inspection: normal inspection of the breasts Breast/axilla palpation: normal palpation of the breasts Resp: Effort & Inspection: normal respiratory effort Auscultation: clear to auscultation bilaterally Cardio: Rate: regular rate GI: GI Palp: Yes Soft to palpation and Yes Firmness to palpation present (GI) (uterus) Percussion: Yes normal to percussion Auscultation: normal bowel sounds : General: Yes bladder normal to inspection and Yes no CVA tenderness Psych: Appearance: grossly normal Mental Status: mental status grossly normal Affect: normal affect Attitude: cooperative Thought content: Yes Normal thought content present Judgement: Good judgement present (Psych)
[2020-03-21 20:00] VITALS: BP 109/61; PULSE 100; RESP 18; TEMP 36.9; O2SAT 98
[2020-03-22] MEDS: HYDROcodone/acetaminophen (*CRX) 5-325 MG TABLET 1 TAB PO ×4 (03:21→22:55)
[2020-03-22] MEDS: IBUPROFEN 600 MG TABLET PO ×4 (05:14→22:56)
[2020-03-22] MEDS: DOCUSATE SODIUM 100 MG CAPSULE PO ×2 (06:44→16:16)
[2020-03-22] MEDS: SIMETHICONE 80 MG TAB.CHEW PO ×2 (06:45→16:16)
[2020-03-22] MEDS: MULTIVIT/MIN/PREN/FOL AC/IRON TABLET 1 TAB PO (06:45)
[2020-03-22] MEDS: FOLIC ACID 1 MG TABLET 2 MG PO ×2 (06:45→16:16)
[2020-03-22] MEDS: LEVOTHYROXINE SODIUM 100 MCG TABLET 200 MCG PO (06:46)
[2020-03-22] MEDS: ACYCLOVIR 400 MG TABLET 800 MG BY MOUTH (06:46)
[2020-03-22 08:00] VITALS: BP 132/65; PULSE 100; PULSE 97; RESP 18; TEMP 36.4; O2SAT 98
--- NOTE | 2020-03-22 10:30 | P.PNOB_ITS ---
OB - PN: Subj Subjective Date/time seen: 03/22/20 10:30 Interval history: 34yohf s/p primary c/s pod2 Patient comments: no complaints, pain well controlled, tolerating diet and flatus present [place] baby status: doing well and other (bili light) [place] feeding status: breast and bottle feeding OB - PN: Obj Data Labs CBC & Chem 7: 03/21/20 04:57 03/20/20 04:48 Labs: Laboratory Results - last 24 hr 03/21/20 03/21/20 12:18 15:32 Gentamicin Peak 2.4 L Gentamicin Trough < 0.6 OB - PN A/P Assessment and Plan (1) Delivery by section: Status: Acute Assessment and Plan: pod 2 stable home in am (2) Term delivered: Code(s): O80 - Encounter for full-term uncomplicated delivery Status: Acute Time Spent With Patient Time: Total time spent is greater than 50% in coordination of care (as documented) at patient's floor/unit and/or counseling patient: Review of Systems Review of Systems: All systems reviewed & are unremarkable except as noted in HPI and below Exam Const: General: comfortable, no acute distress, alert and awake Orientation/consciousness: patient oriented x3 Chest: Breast/axilla inspection: normal inspection of the breasts Resp: Effort & Inspection: normal respiratory effort Cardio: Rate: regular rate GI: GI Palp: Yes Soft to palpation Percussion: Yes normal to percussion Auscultation: normal bowel sounds : General: Yes bladder normal to inspection and Yes no CVA tenderness Psych: Appearance: grossly normal Mental Status: mental status grossly normal Affect: normal affect Attitude: cooperative Thought content: Yes Normal thought content present Judgement: Good judgement present (Psych)
[2020-03-23 02:27] VITALS: BP 104/63; PULSE 95; RESP 18; TEMP 36.9
[2020-03-23] MEDS: HYDROcodone/acetaminophen (*CRX) 5-325 MG TABLET 1 TAB PO ×3 (05:52→13:15)
[2020-03-23] MEDS: IBUPROFEN 600 MG TABLET PO ×2 (05:52→13:15)
--- NOTE | 2020-03-23 07:15 | PC.NURSE ---
PT introductions made and plan of care discussed per post op c section, pain management, breast /bottle feeding, daily care activities and pending discharge to home. PT verbalized understanding of such care.
[2020-03-23 07:35] VITALS: BP 114/70; PULSE 94; RESP 18; TEMP 36.9; O2SAT 97
[2020-03-23] MEDS: LEVOTHYROXINE SODIUM 100 MCG TABLET 200 MCG PO (07:49)
--- NOTE | 2020-03-23 09:15 | PC.NURSE ---
Mother is able to independently latch with appropriate positioning/alignment, she then supplements with formula. She denies any nipple discomfort, is feeding as required and waking to feed if needed. Infant has had several effective feedings in the past 24 hours, and is currently meeting outcomes for weight, output, jaundice and feeding frequencies. Mother states she feels confident to continue current feeding plan at home. Mother states this is more bottle feeding than breastsfeeding and plans to decrease supplement once her milk is in. Mother has not been recording on feeding/elimination flow sheet. Mother reports infant only breastfeeds 10 minutes and is not satisfied. Reviewed transition to breast milk, signs of adequate intake, and engorgement/relief. Instructed to call ICP if intake/output less than required. Reviewed regular medications mother is taking. Information provided per [facility]. Reviewed community resources on the [employer] website and in the Mom/Baby guide. Mother is a [place] client and states she will seek out assist from WIC if needed. Information on outpatient services provided. Mother has no further questions at this time.
[2020-03-23 10:00] VITALS: PULSE 94; RESP 18; O2SAT 97
[2020-03-23] MEDS: DOCUSATE SODIUM 100 MG CAPSULE PO (10:12)
[2020-03-23] MEDS: FOLIC ACID 1 MG TABLET 2 MG PO (10:13)
[2020-03-23] MEDS: ACYCLOVIR 400 MG TABLET 800 MG BY MOUTH (10:14)
[2020-03-23] MEDS: MULTIVIT/MIN/PREN/FOL AC/IRON TABLET 1 TAB PO (10:14)
[2020-03-23] MEDS: SIMETHICONE 80 MG TAB.CHEW PO (10:14)
--- NOTE | 2020-03-23 13:15 | PC.NURSE ---
Pt received discharge instructions per protocol and verbalized understanding of such instructions.
--- NOTE | 2020-03-23 13:44 | PC.NURSE ---
PT discharged to home ambulatory accompanied by significant other and and taken to waiting car. Follow up appts confirmed
[2020-03-24 10:51] VITALS: BP 128/73; PULSE 94; RESP 20; TEMP 37.2; O2SAT 100
== END 2020-03-23 13:44 | disposition home or self-care (01) | DRG 540 ==
LOC: ANHLDR 11:06 → ANHOB2 14:33
PROVIDERS: Admitting Provider Obstetrics & Gynecology; Visit Provider Obstetrics & Gynecology
PROC: 10D00Z1 Extraction of Products of Conception, Low, Open Approach (ICD-10-PCS; CPT 59514; principal; 2020-03-20 11:00)
DX: O13.4 Gestational [pregnancy-induced] hypertension without significant proteinuria, complicating childbirth (principal); Z3A.39 39 weeks gestation of pregnancy; Z37.0 Single live birth; O36.8330 Maternal care for abnormalities of the fetal heart rate or rhythm, third trimester, not applicable or unspecified; O98.32 Other infections with a predominantly sexual mode of transmission complicating childbirth; A60.00 Herpesviral infection of urogenital system, unspecified; O99.284 Endocrine, nutritional and metabolic diseases complicating childbirth; E72.12 Methylenetetrahydrofolate reductase deficiency; E03.9 Hypothyroidism, unspecified; R73.09 Other abnormal glucose; O77.0 Labor and delivery complicated by meconium in amniotic fluid; O69.3XX0 Labor and delivery complicated by short cord, not applicable or unspecified; O41.1230 Chorioamnionitis, third trimester, not applicable or unspecified; O99.214 Obesity complicating childbirth; E66.9 Obesity, unspecified
CPT/HCPCS: 36415; 74018; 80053; 80170; 80307; 84550; 85025; 86592; 86850; 86900; 86901; 88307; A9270; J0131; J0690; J1200; J1580; J1885; J2274; J2370; J2405; J2590; J2795; J3010; J7120